=== PATIENT | male | born 1950 | race Caucasian/White ===

== ENCOUNTER 2017-12-05 07:00 | Day surgery (SDC) | payer OTHER | END 2017-12-05 12:40 | disposition home or self-care (01) | LOC: AMB-ENDOS 07:00 | DX: C20 Malignant neoplasm of rectum (principal); D50.0 Iron deficiency anemia secondary to blood loss (chronic); N17.8 Other acute kidney failure; Z93.3 Colostomy status; R27.8 Other lack of coordination; J16.8 Pneumonia due to other specified infectious organisms; I26.99 Other pulmonary embolism without acute cor pulmonale; Z85.038 Personal history of other malignant neoplasm of large intestine; Z99.11 Dependence on respirator [ventilator] status; J96.01 Acute respiratory failure with hypoxia; J98.11 Atelectasis; R06.02 Shortness of breath ==